=== PATIENT | female | born 1970 | race Caucasian/White ===

== ENCOUNTER 2018-10-29 09:14 | Day surgery (SDC) ==
--- NOTE | 2018-10-23 08:21 | EKG Report ---
Test Performed on : 10/23/2018 08:08:12 AM Test Reason : PAT Blood Pressure : / mmHG Vent. Rate : 080 BPM Atrial Rate : 080 BPM P-R Int : 146 ms QRS Dur : 092 ms QT Int : 396 ms P-R-T Axes : 003 074 054 degrees QTc Int : 456 ms Normal sinus rhythm. Incomplete right bundle branch block Borderline ECG When compared with ECG of 22-AUG-2018 13:16, Incomplete right bundle branch block is now present Confirmed by Gerardo Ortega MD ([id number]) on 10/23/2018 12:02:49 PM
[2018-10-23 08:31] LABS: URINE SOURCE CLEAN CATCH
[2018-10-23 09:14] LABS: BASO# 0.02 X1000 (0.0-0.2); BASO% 0.5 % (0.0-0.8); EOS# 0.05 X1000 (0.0-0.7); EOS% 1.2 % (0.0-10.0); HEMATOCRIT 42.6 % (37.0-47.0); LYMPH# 1.86 X1000 (1.2-3.4); LYMPH% 43.1 % (20.5-51.1); MCH 36.3 PG (27-31); MCHC 35.2 g/dL (33-37); MCV 103.1 FL (81-99); MONO# 0.39 X1000 (0.11-0.59); MPV 10.1 FL (7.4-10.4); NEUT% 46.2 % (42.2-75.2); PLT 194 X1000 (130-400); RBC 4.13 XMIL (4.2-5.4); RDW 12.5 % (11.5-14.5); WBC 4.32 X1000 (4.8-10.8)
[2018-10-23 09:16] LABS: BILIRUBIN URINE NEGATIVE (NEGATIVE); BLOOD URINE NEGATIVE (NEGATIVE); COLOR YELLOW; GLUCOSE URINE NEGATIVE (NEGATIVE); KETONE URINE NEGATIVE (NEGATIVE); LEUKOCYTES URINE NEGATIVE (NEGATIVE); NITRITE URINE NEGATIVE (NEGATIVE); PH URINE 5.5; PROTEIN URINE NEGATIVE (NEGATIVE); SP GRAVITY URINE 1.012; TURBIDITY URINE CLEAR (CLEAR); UROBILINOGEN URINE NORMAL (NORMAL)
[2018-10-23 09:21] LABS: UR EPITHELIAL CELLS <10 /HPF (<10); URINE BACTERIA NEGATIVE /HPF; URINE RBC <10 /HPF (<10); URINE WBC <10 /HPF (<10)
[2018-10-23 09:22] LABS: INR 0.99; PROTIME 13.2 Seconds (11.0-16.0)
[2018-10-23 09:28] LABS: HEMOGLOBIN A1C 4.4 % (4.8-6.0)
[2018-10-23 09:34] LABS: AGAP 14; BUN 10 mg/dL (8-22); CALCIUM 9.1 mg/dL (8.8-10.2); CHLORIDE 103 mmol/L (98-107); COSMO 278; CREATININE 0.8 mg/dL (0.5-0.9); ESTIMATED GFR > 60; GLUCOSE 87 mg/dL (70-104); POTASSIUM 3.6 mmol/L (3.5-5.1); SODIUM 140 mmol/L (136-145); TCO2 23 mmol/L (25-35)
[2018-10-29] MEDS ORDERED: PEPCID ONE (09:26)
[2018-10-29] MEDS ORDERED: COLACE ONE (09:26)
[2018-10-29] MEDS ORDERED: REGLAN ONE (09:26)
[2018-10-29] MEDS ORDERED: KEFZOL 1 GM/D5W 2 GM/100 ML IVPB ONE (09:27)
[2018-10-29] MEDS ORDERED: CELEBREX ONE (09:27)
[2018-10-29] MEDS ORDERED: LR 1,000 ML ONE (09:27)
[2018-10-29] MEDS ORDERED: LYRICA ONE (09:27)
[2018-10-29] MEDS ORDERED: SENSORCAINE 0.25%/EPI 1:200,000 ONE ×2 (10:46→11:50)
[2018-10-29] MEDS ORDERED: DURAMORPH ONE ×2 (10:46→11:49)
[2018-10-29] MEDS ORDERED: SODIUM CHLORIDE 0.9% ONE ×2 (10:46→11:50)
[2018-10-29] MEDS ORDERED: NEOSPORIN G.U. IRRIGANT ONE (10:47)
[2018-10-29] MEDS ORDERED: EXPAREL 1.3% ONE ×2 (10:47→11:50)
[2018-10-29] MEDS ORDERED: DIPRIVAN 1% 500 MG/50 ML BOTTLE ONE (11:11)
[2018-10-29] MEDS ORDERED: VERSED ONE ×2 (11:12→11:42)
[2018-10-29] MEDS ORDERED: FENTANYL ONE (11:12)
[2018-10-29] MEDS ORDERED: XYLOCAINE-MPF 2% ONE (11:13)
[2018-10-29] MEDS: CYKLOKAPRON 1,000 MG/NS 2,000 MG/200 ML IVPB ONE ×2 (11:40→12:49)
[2018-10-29] MEDS ORDERED: VANCOMYCIN ONE (11:50)
[2018-10-29] MEDS: VANCOMYCIN ONE ×2 (12:06→12:09)
[2018-10-29 12:25] LABS: URINE SOURCE CATH
[2018-10-29 12:31] LABS: BILIRUBIN URINE NEGATIVE (NEGATIVE); BLOOD URINE NEGATIVE (NEGATIVE); COLOR STRAW; GLUCOSE URINE NEGATIVE (NEGATIVE); KETONE URINE TRACE mg/dL (NEGATIVE); LEUKOCYTES URINE NEGATIVE (NEGATIVE); NITRITE URINE NEGATIVE (NEGATIVE); PH URINE 6.5; PROTEIN URINE NEGATIVE (NEGATIVE); SP GRAVITY URINE 1.011; TURBIDITY URINE CLEAR (CLEAR); UROBILINOGEN URINE NORMAL (NORMAL)
[2018-10-29 12:32] LABS: UR EPITHELIAL CELLS <10 /HPF (<10); URINE BACTERIA NEGATIVE /HPF; URINE RBC <10 /HPF (<10); URINE WBC <10 /HPF (<10)
[2018-10-29] MEDS ORDERED: DIPRIVAN 1% ONE (12:32)
[2018-10-29] MEDS ORDERED: NS 1,000 ML ONE (13:21)
[2018-10-29] MEDS ORDERED: DEMEROL ONE (13:44)
--- NOTE | 2018-10-29 13:49 | Diag Imaging Result Doc PS360 ---
EXAM: KNEE 1-2 VIEWS-RIGHT 10/29/2018 HISTORY: POST OP TECHNIQUE: Right knee two views COMMENT: There is a total knee arthroplasty. No evidence of acute fracture or dislocation is present. IMPRESSION: Postsurgical change. Electronically signed by Jim Gomez 10/29/2018 1:47 PM
--- NOTE | 2018-10-29 14:02 | OPERATIVE NOTE ---
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 OPERATIVE PROCEDURE: Right total knee replacement. SURGEON: Rekha Manning MD ELECTRICAL EQUIPMENT ASSEMBLER: JOSSELIN Marroquin. Mr. Siddiqui is necessary for proper retraction and manipulation of the leg. ANESTHESIA: Spinal. COMPLICATIONS: None. PROCEDURE IN DETAIL: This 48-year-old female with avascular necrosis of the right knee presents for a total knee replacement. Risks, benefits, and no guarantees were discussed, and she is willing to proceed. She was taken to the operating room, and satisfactory anesthesia obtained. The right leg was prepped and draped in usual sterile fashion. A time-out was taken to confirm operative site, procedure, and patient. The leg was wrapped with an Esmarch, and tourniquet inflated to 350 mmHg. A midline incision was made over the front of the knee followed by a quad tendon sparing arthrotomy. The patella was everted and resurfaced with freehand technique and subluxed laterally. The knee was flexed, and an intramedullary hole made in the distal femur. The distal femoral cutting block secured in 5 degrees of valgus. Distal femoral resection was made, and the femur sized to a size 5 DePuy Attune component. The 4 in 1 block was secured and the anterior, posterior, and chamfer cuts sequentially made. Care was taken to preserve the PCL. The knee was flexed and a PCL retractor placed behind the tibia to protect the PCL and neurovascular bundle. Tibial cutting block was secured with extramedullary alignment and tibial resection made. Flexion and extension gaps were equal at roughly 5 mm thickness. Tibia was sized to a size 4 tibial tray. Trial reduction was performed with a size 4 tibial tray, a 5 mm thick poly, and a size 5 narrow femoral component with good range of motion and stability. The patella was sized to a 35 medialized dome patella. The drill holes were placed for the patella and femoral implants, and the trial components removed. The bony surfaces were thoroughly irrigated with pulsatile lavage. Cement with a gram of vancomycin was utilized to cement a DePuy Attune size 4 rotating platform tibial tray, a size 5 cruciate retaining narrow femoral component for right knee, and a 35 medialized dome patella. While the cement cured, the excess cement was removed with a [place] elevator. The joint capsule was injected with Exparel for pain management. A Hemovac drain placed. The arthrotomy was then copiously irrigated with irrigant. A 5 mm thick poly to match the size 5 femur was inserted into the tibial tray, and the knee reduced. Final range of motion was 0 to 130 degrees of flexion with midline patellar tracking, and good soft tissue balance. The wound was then closed over the drain with #1 Vicryl in the arthrotomy, 2- 0 Vicryl in the subcutaneous, and skin calvin on the skin edges. Sterile dressings completed the closure. The patient was recovered from anesthesia, and transferred to the recovery room in stable condition. No intraoperative complications were noted. Instrument count and sponge count was correct at the time of closure. cc: Abram Manning MD
[2018-10-29] MEDS ORDERED: OXY IR PO PRN (15:00)
[2018-10-29] MEDS ORDERED: MORPHINE IV PRN ×2 (15:00)
[2018-10-29] MEDS: NS 1,000 ML IV SCH ×2 (15:01→22:30)
--- NOTE | 2018-10-29 15:27 | ORTHOPAEDICS PROGRESS NOTE ---
DATE: 10/29/2018 POSTOPERATIVE NOTE: Ms. Dupree is seen status post total knee replacement. At the present time, she is afebrile with stable vital signs. Her bandage is clean and dry. Postoperative x-ray showed good alignment of the total knee implant. We will plan on mobilizing her with physical therapy. She can be discharged home when she is mobilizing well. cc: Abram Manning MD
[2018-10-29] MEDS ORDERED: CATAPRES-TTS-1 TD SCH (16:00)
[2018-10-29] MEDS: ULTRAM PO SCH (16:37)
[2018-10-29] MEDS: NEURONTIN PO SCH ×2 (16:37→22:24)
[2018-10-29] MEDS: PHENERGAN PO PRN (16:45)
[2018-10-29] MEDS: TYLENOL PO SCH (18:13)
[2018-10-29] MEDS: OXY IR PO PRN (18:51)
[2018-10-29] MEDS ORDERED: KEFZOL 2 GM/D5W 2 GM/50 ML IVPB IV SCH (19:30)
[2018-10-29] MEDS ORDERED: TOPROL XL PO SCH (21:00)
[2018-10-29] MEDS ORDERED: XANAX PO SCH (21:00)
[2018-10-29] MEDS ORDERED: SODIUM CHLORIDE 0.9% INJ PRN (21:55)
[2018-10-29] MEDS ORDERED: BENADRYL IV PRN (21:56)
[2018-10-29] MEDS: KEFZOL 2 GM/D5W 2 GM/50 ML IVPB IV SCH (22:21)
[2018-10-29] MEDS: MORPHINE IV PRN (22:21)
[2018-10-29] MEDS: PRINIVIL PO SCH (22:23)
[2018-10-29] MEDS: CELEBREX PO SCH (22:24)
[2018-10-29] MEDS: PHENERGAN IV PRN (22:26)
[2018-10-29] MEDS: COLACE PO SCH (22:30)
[2018-10-30] MEDS: MORPHINE IV PRN ×2 (02:51→08:00)
[2018-10-30] MEDS: OXY IR PO PRN ×2 (04:13→09:47)
[2018-10-30] MEDS: KEFZOL 2 GM/D5W 2 GM/50 ML IVPB IV SCH (04:15)
[2018-10-30] MEDS: PERIDEX MT SCH ×2 (04:23→08:40)
[2018-10-30] MEDS: TYLENOL PO SCH ×3 (04:23→11:46)
[2018-10-30] MEDS: ULTRAM PO SCH ×4 (04:25→12:18)
[2018-10-30 05:44] LABS: HEMATOCRIT 35.1 % (37.0-47.0); HEMOGLOBIN 11.7 g/dL (12.0-16.0)
[2018-10-30 06:39] LABS: AGAP 14; BUN 4 mg/dL (8-22); CALCIUM 8.4 mg/dL (8.8-10.2); CHLORIDE 103 mmol/L (98-107); COSMO 275; CREATININE 0.8 mg/dL (0.5-0.9); ESTIMATED GFR > 60; GLUCOSE 114 mg/dL (70-104); POTASSIUM 3.1 mmol/L (3.5-5.1); SODIUM 139 mmol/L (136-145); TCO2 22 mmol/L (25-35)
[2018-10-30 07:23] VITALS: BP 116/85
--- NOTE | 2018-10-30 08:03 | ORTHOPAEDICS PROGRESS NOTE ---
DATE: 10/30/2018 SUBJECTIVE: Ms. Dupree is seen status post total knee replacement. At the present time, she is afebrile with stable vital signs. Her bandage is clean and dry. She can be discharged after therapy today. We will follow up with her in 12 days. She is to continue with her home medicines. She is also discharged with Percocet as needed for pain, ibuprofen 600 mg as needed for pain, aspirin 325 for DVT prophylaxis, and Bactrim for antibacterial prophylaxis. She is to return or call us for any worsening signs or symptoms to my office. cc: Abram Manning MD
[2018-10-30] MEDS: NEURONTIN PO SCH (08:37)
[2018-10-30] MEDS: COLACE PO SCH (08:37)
[2018-10-30] MEDS: PRINIVIL PO SCH (08:38)
[2018-10-30] MEDS: PHENERGAN PO PRN (08:39)
[2018-10-30] MEDS: CELEBREX PO SCH (08:39)
[2018-10-30] MEDS: PHENERGAN IV PRN (08:49)
[2018-10-30] MEDS ORDERED: ASPIRIN PO SCH (09:00)
[2018-10-30] MEDS ORDERED: PEPCID PO SCH (09:00)
== END 2018-10-30 12:23 | disposition home or self-care (01) ==
LOC: OR 09:14 → 4N 09:14 → OR 10-30 12:23
PROVIDERS: ATTEND Orthopaedic Surgery Adult Reconstructive Orthopaedic Surgery